=== PATIENT | male | born 1990 | race Caucasian/White ===

== ENCOUNTER 2023-10-15 08:59 | Emergency (ER) | payer BC, SELFPAY ==
[2023-10-15] VITALS (12 sets, daily range): BP systolic 103–125; BP diastolic 69–90; BMI 24.4
--- NOTE | 2023-10-15 09:27 | ED.GENMED ---
History of Present Illness
General
Chief Complaint: Musculo-Skeletal Complaint
Source: patient
Exam Limitations: none
Time Seen by Provider: 10/15/23 09:19
Travel History
Have you had any contact with someone who has COVID-19?: No
Do you have any symptoms of coronavirus? Fever > 100 degrees, chills, cough, shortness of breath, sore throat, loss of taste or smell, muscle aches, or headache?: No
History of Present Illness
History of Present Illness:
See MDM
Past History
Past History
ED Past Medical History: None
ED Past Surgical History: None
Social History
Tobacco: Non-smoker
Alcohol: None
Living: with family
Phy Exam
Physical Exam
Physical Exam:
See MDM
Course
Orders/Labs/Results
Orders:
Orders
10/15/23 09:07
Shoulder, Left, Trauma CR [CR Shoulder, Trauma - Left] Urgent
Comment:
Reason For Exam: fall
10/15/23 09:45
Propofol [Diprivan] 20 ml .ROUTE .STK-MED
10/15/23 10:04
Shoulder, Left 2 View CR [CR Shoulder - Left Min 2 View*] Urgent
Comment:
Reason For Exam: post reduction
Vital Signs
Initial and Last Documented VS:
Initial Vital Signs
Temp Pulse Resp BP Pulse Ox
98.1 F 84 16 125/90 98
10/15/23 09:05 10/15/23 09:05 10/15/23 09:05 10/15/23 09:05 10/15/23 09:05
Last Documented Vital Signs
Temp Pulse Resp BP Pulse Ox
97.7 F 62 16 112/71 100
10/15/23 09:51 10/15/23 10:00 10/15/23 10:00 10/15/23 09:56 10/15/23 10:00
Procedures
Moderate Sedation
ASA Risk Score: Class I
Chart and allergies reviewed: Yes
Consent for anesthesia obtained: Yes
Time out completed (validating right patient & procedure): Yes
Moderate Sedation Start Time(when first medication is given): 09:50
History of difficult intubation: No
Airway free of obstruction: Yes
Patient has a gag reflex: Yes
Patient is able to open mouth: Yes
Patient has no dentures: Yes
Patient has no loose teeth: Yes
Medication administered by Provider during Moderate Sedation: IV Propofol (mg)
Total dose administered: 150
Time drug administered: 09:50
Moderate Sedation Procedure End Time: 10:03
Joint/Fracture Reduction
Left Anterior Shoulder:
Indication for procedure:: Anterior Shoulder Dislocation
Procedure completed by: Roosevelt Michele DO
Consent form signed: Yes
Joint reduced: with anesthesia sedation
Injury was: closed
Further treatement: needs further treatment
Post reduction exam: stable
Capillary Refill: normal
Peripheral Pulses: radial (left): 2+
Additional information:
Time out 9:48 AM
MDM/Problems Addressed
Differential Diagnosis Includes:
HPI and MDM Narrative:
33-year-old male presenting with left shoulder injury. Patient tripped on the steps injuring his left shoulder. Patient is convinced that his left shoulder is dislocated. This happened before and he is supposed to get shoulder surgery. On exam,
there is step-off to the left shoulder. The extremity is otherwise neurovascularly intact.
Patient signed consent for moderate sedation and reduction
Physical exam
General: Mildly uncomfortable
HEENT: protecting airway
Neck: appears supple
CV: No evidence of cyanosis
Resp: No accessory muscle use
Abd: Non-distended
Extremities: Step-off to left shoulder. Distal extremity neurovascular intact
Neuro: alert
Psych: Normal affect
Skin: Intact
Problems Addressed including Acute and Chronic Conditions affecting care:
1. Left shoulder dislocation
Acuity: acute
Prognosis: unstable
Details: Patient signed consent for moderate sedation.
Updates
10:09 AM patient tolerated moderate sedation and reduction without complication. I discussed with patient and at bedside that his shoulder was easily reduced and dislocated just as easily. Because of this, I am concerned that he will need
surgery in the near future. Patient and acknowledged my concern.
Differential Diagnosis (but not limited to): Hill-Sachs fracture, shoulder dislocation, Bankart fracture, rotator cuff tear
Drug therapy (if applicable): OTC meds, please see d/c instruction regarding Rx drugs
Amount and/or Complexity of Data Reviewed
Clinical info obtained from: Patient
External data reviewed: N/A
Labs I independently reviewed (but not limited to): N/A
Radiology: x-ray independently reviewed: Left anterior shoulder dislocation
Pulse Ox: not hypoxic
EKG independently reviewed: N/A
Senior Cytogenetic Technologist: N/A
Critical Care: N/A
Risk of Complication:
Social Determinants of health: Good social support
Discussed with other providers: N/A
Escalation of Care includes Admit/Obs: After being observed in the Emergency Department, pt stable for discharge.
Occasional wrong word or 'sound a like' substitutions may have occurred due to the inherent limitations of voice recognition software. Read the chart carefully and recognize, using context, where substitutions have occurred.
*Critical Care Note
Total Time (30-74mins, 75-104mins- exclusive of procedures): Not Applicable
ED Attending Note
-
Portions of this chart may have been created with voice recognition software.� Occasional wrong word or��sound alike� substitutions may have occurred due to the inherent limitations of voice recognition software.
Discharge Plan
Departure
Patient Disposition: Home (Routine Discharge)
Date of Disposition: 10/15/23
Time of Disposition: 10:07
Patient with high blood pressure during this ER visit?: No
Discharge Problem:
Dislocation of shoulder, left, closed
Instructions: Shoulder Dislocation (DC), MODERATE SEDATION ADULT
Prescriptions:
No Action
No Current Medications
Referrals:
Gonzalez Rosales MD [Active] -
Activity Restrictions/Additional Instructions:
Please follow-up with the orthopedist. Given the multiple shoulder dislocations, you likely need surgery. Keep the sling on until instructed otherwise by the orthopedist. Return for worsening symptoms.
Interventions
Interventions:
*Risk Screen - Suicide Last Done: 10/15/23 09:05
*General Assessment Last Done: 10/15/23 09:05
*Neglect/Abuse Screening Last Done: 10/15/23 09:05
ED- Fall Risk Assessment Last Done: 10/15/23 09:45
*ED COVID-19 Vaccine History Last Done: 10/15/23 10:02
ED-Musculoskeletal Assessment Last Done: 10/15/23 09:45
Discharge Date and Time
Print Language: GUAMANIAN
== END 2023-10-15 11:05 | disposition home or self-care (01) ==
LOC: EMR 08:59
PROVIDERS: EMERGENCY PHYSICIAN Student in an Organized Health Care Education/Training Program; FAMILY PHYSICIAN Family Medicine
DX: S43.005A Unspecified dislocation of left shoulder joint, initial encounter (principal); W19.XXXA Unspecified fall, initial encounter
CPT/HCPCS: 99283; 23650; 99152; 73030